=== PATIENT | female | born 2000 | race Caucasian/White ===

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

== ENCOUNTER 2021-03-01 15:29 | Emergency (ER) | payer OTHER, SELFPAY ==
[2020-10-02 10:25] VITALS: BMI 24.9
[2021-03-01 15:32] VITALS: BP 112/69; PULSE 80; RESP 18; TEMP 37.1; O2SAT 100; BMI 25.5
--- NOTE | 2021-03-01 16:01 | ED.RN ---
pt removed iv and told pathology secretary she was leaving.
== END 2021-03-01 16:06 ==
PROVIDERS: Emergency Provider Emergency Medicine; PCP Pediatrics
DX: T78.40XA Allergy, unspecified, initial encounter (principal)
CPT/HCPCS: 99283